=== PATIENT | female | born 1990 | race Hispanic/Latino ===

== ENCOUNTER 2024-03-14 12:42 | Inpatient (IN) | payer MEDICAID, SELFPAY ==
[2024-03-14] MEDS ORDERED: Oseltamivir 75 MG CAP ONE (13:15)
[2024-03-14 13:31] LABS: Hematocrit 35.3 % (36.0-47.0); Hemoglobin 11.3 g/dL (12.0-16.0); Mean Corpuscular Hemoglobin 26.8 pg (27.0-31.0); Mean Corpuscular Volume 83.8 fL (78.0-98.0); Mean Platelet Volume 9.4 fL (7.4-10.4); Platelet Count 349 10x3/uL (130-400); RBC Distribution Width 13.2 % (11.5-14.5); Red Blood Cell (RBC) Count 4.21 mill/uL (4.20-5.40)
[2024-03-14 13:40] LABS: ALT (SGPT) 84 U/L (8-55); AST (SGOT) 97 U/L (5-34); Albumin 2.6 g/dL (3.5-5.0); Alkaline Phosphatase 148 U/L (40-110); Anion Gap 14 mmol/L (10-20); BUN (Urea Nitrogen) 6 mg/dL (7.0-18.7); Bilirubin, Total 1.1 mg/dL (0.2-1.2); Calc. Creatinine Clearance 0 mL/min (70-130); Calcium 7.5 mg/dL (7.8-10.44); Carbon Dioxide 18 mmol/L (22-29); Chloride 111 mmol/L (98-107); Estimated GFR 111; Globulin 3.4 g/dL (2.4-3.5); Glucose 135 mg/dL (70-105); Potassium 3.2 mmol/L (3.5-5.1); Sodium 140 mmol/L (136-145)
[2024-03-14 13:43] LABS: Troponin I Less than 0.010 ng/mL (< 0.028)
[2024-03-14] MEDS ORDERED: Metoclopramide HCl 10 MG (2 mL) VIAL ONE (13:50)
[2024-03-14] MEDS ORDERED: Ketorolac Tromethamine 30 MG (1 mL) VIAL ONE (13:56)
[2024-03-14] MEDS ORDERED: Sodium Chloride 0.9% 1,000 ML IV SCH (14:00)
[2024-03-14] MEDS ORDERED: cefTRIAXone\\ROCEPHIN 2 GM in Sodium Chloride 0.9% 100 ML IVPB SCH (14:00)
[2024-03-14 14:07] LABS: Band 45 % (5-11); Burr Cells MODERATE= 6-15 cells HPF (0-1); Lymphocytes 12 % (21-51); Neutrophil 43 % (42-75); Ovalocytes SLIGHT = 2-5 cells HPF (0-1); Platelet Adequacy Comment Platelets Normal; Reflex for Review?? YES
[2024-03-14] MEDS ORDERED: Piperacillin/Tazobactam 3.375 GM in Sodium Chloride 0.9% 100 ML IVPB SCH ×2 (14:45→19:00)
[2024-03-14] MEDS ORDERED: Hydrocortisone Sod Succ/PF 100 mg/2 ml Vial ONE (14:59)
[2024-03-14] MEDS ORDERED: Electrolyte Replacement Protocol 1 EACH FS SCH (15:37)
[2024-03-14 16:06] LABS: Lactic Acid 2.16 mmol/L (0.5-2.2)
[2024-03-14 16:37] LABS: ALT (SGPT) 106 U/L (8-55); AST (SGOT) 159 U/L (5-34); Albumin 2.2 g/dL (3.5-5.0); Alkaline Phosphatase 177 U/L (40-110); Anion Gap 10 mmol/L (10-20); BUN (Urea Nitrogen) 5 mg/dL (7.0-18.7); Bilirubin, Total 1.3 mg/dL (0.2-1.2); Calc. Creatinine Clearance 0 mL/min (70-130); Calcium 6.8 mg/dL (7.8-10.44); Carbon Dioxide 18 mmol/L (22-29); Chloride 112 mmol/L (98-107); Estimated GFR 117; Globulin 2.8 g/dL (2.4-3.5); Glucose 126 mg/dL (70-105); Potassium 2.4 mmol/L (3.5-5.1); Sodium 138 mmol/L (136-145)
[2024-03-14 16:40] VITALS: BMI 22.6
[2024-03-14 16:56] LABS: Bacteria/HPF None Seen HPF (None Seen); Bilirubin Negative (Negative); Blood, Urine 3+ (Negative); CAUTI Indications for Culture Fever or rigors; Clarity Clear (Clear); Glucose, Urine (Dipstick) Normal (Negative); Ketone, Urine Negative (Negative); Leukocyte 250 Leu/uL (Negative); Nitrite Negative (Negative); Protein, Urine (Dipstick) 10 mg/dL (Neg-Trace); Specific Gravity, Urine 1.022 (1.002-1.036); Squamous Epithelial 0-3 HPF (0-3); Urobilinogen Normal mg/dL (Less than 2); WBC/HPF 21-50 HPF (0-3); pH, Urine 5.5 (5.0-9.0)
[2024-03-14 16:57] LABS: Urine Culture Reflex Yes Yes
[2024-03-14] MEDS: Piperacillin/Tazobactam 3.375 GM in Sodium Chloride 0.9% 100 ML IVPB SCH ×2 (16:58→17:13)
[2024-03-14] MEDS: Potassium Chloride 10 MEQ in Premix 1 BAG IVPB SCH (16:58)
[2024-03-14] MEDS: Lactated Ringer's 1,000 ML IV SCH ×2 (16:59)
[2024-03-14] MEDS: Hydrocortisone Sod Succ/PF 100 mg/2 ml Vial IVP SCH ×2 (17:12→20:24)
[2024-03-14] MEDS ORDERED: NOREPINEPHRINE 8 MG/250 ML-D5W 250 ML IVPB SCH (17:15)
[2024-03-14] MEDS ORDERED: Ondansetron PF 4 MG/2 ML Vial IVP PRN (17:53)
[2024-03-14] MEDS: Potassium Chloride 20 MEQ in Premix 1 BAG IVPB SCH (17:57)
[2024-03-14] MEDS: Potassium Chloride 40 MEQ in Premix 1 BAG IVPB SCH (17:57)
[2024-03-14] MEDS: Ketorolac Tromethamine 30 MG (1 mL) VIAL IVP PRN (18:05)
[2024-03-14] MEDS ORDERED: Dextrose 50% Abboject 50 ML SYRINGE SLOW IVP PRN (20:06)
[2024-03-14] MEDS ORDERED: Dextrose 5% in Water 1,000 ML IV PRN (20:06)
[2024-03-14] MEDS ORDERED: Glucagon 1 MG/ML KIT IM PRN (20:06)
[2024-03-14] MEDS: Enoxaparin 30 MG (0.3 mL) SYRINGE SC SCH (20:24)
[2024-03-14] MEDS: Famotidine/PF 20 mg/2ml Vial SLOW IVP SCH (20:24)
[2024-03-14] MEDS: Insulin Lispro 100 UNIT/ML 10 ML VIAL SC PRN (20:26)
[2024-03-14 20:27] LABS: ALT (SGPT) 147 U/L (8-55); AST (SGOT) 206 U/L (5-34); Albumin 2.3 g/dL (3.5-5.0); Alkaline Phosphatase 185 U/L (40-110); Anion Gap 13 mmol/L (10-20); BUN (Urea Nitrogen) 5 mg/dL (7.0-18.7); Bilirubin, Total 1.4 mg/dL (0.2-1.2); Calc. Creatinine Clearance 92 mL/min (70-130); Calcium 7.7 mg/dL (7.8-10.44); Carbon Dioxide 17 mmol/L (22-29); Chloride 117 mmol/L (98-107); Estimated GFR 117; Glucose 273 mg/dL (70-105); Potassium 3.5 mmol/L (3.5-5.1); Protein, Total 5.3 g/dL (6.0-8.3); Sodium 143 mmol/L (136-145)
[2024-03-15] MEDS: Lactated Ringer's 1,000 ML IV SCH ×2 (00:07→17:33)
[2024-03-15 04:49] LABS: Hematocrit 29.3 % (36.0-47.0); Hemoglobin 9.6 g/dL (12.0-16.0); Mean Corpuscular HGB CONC 32.8 g/dL (32.0-36.0); Mean Corpuscular Hemoglobin 26.7 pg (27.0-31.0); Mean Corpuscular Volume 81.6 fL (78.0-98.0); Platelet Count 333 10x3/uL (130-400); RBC Distribution Width 13.5 % (11.5-14.5); Red Blood Cell (RBC) Count 3.59 mill/uL (4.20-5.40)
[2024-03-15 04:57] LABS: ALT (SGPT) 134 U/L (8-55); AST (SGOT) 113 U/L (5-34); Albumin 2.1 g/dL (3.5-5.0); Alkaline Phosphatase 174 U/L (40-110); Anion Gap 10 mmol/L (10-20); BUN (Urea Nitrogen) 6 mg/dL (7.0-18.7); Bilirubin, Total 0.5 mg/dL (0.2-1.2); Calc. Creatinine Clearance 106 mL/min (70-130); Calcium 7.8 mg/dL (7.8-10.44); Carbon Dioxide 21 mmol/L (22-29); Chloride 118 mmol/L (98-107); Estimated GFR 121; Globulin 3.1 g/dL (2.4-3.5); Glucose 166 mg/dL (70-105); Magnesium 1.8 mg/dL (1.6-2.6); Potassium 3.9 mmol/L (3.5-5.1); Protein, Total 5.2 g/dL (6.0-8.3); Sodium 145 mmol/L (136-145)
[2024-03-15 05:15] LABS: HBsAg Index 0.28 S/CO (0-0.99); Hep A IgM AB NONREACTIVE (NonReactive); Hep A IgM S/CO 0.26 S/CO (0-0.79); Hep B Core IgM Index 0.12 S/CO (0-0.79); Hep B Surf Ag NONREACTIVE S/CO (NonReactive); Hep C IgG Ab NONREACTIVE S/CO (NonReactive); Hep C Index 0.18 S/CO (0-0.79); Hepatitis B Core IgM Abs NONREACTIVE S/CO (NonReactive)
[2024-03-15 05:25] LABS: Band 32 % (5-11); Burr Cells SLIGHT = 2-5 cells HPF (0-1); Dohle Bodies SLIGHT; Lymphocytes 4 % (21-51); Metamyelocyte 3 % (0-0); Microcytosis SLIGHT = 6-15 cells HPF (0-5); Monocytes 3 % (0-10); Neutrophil 58 % (42-75); Platelet Adequacy Comment Platelets Normal; Poikilocytosis SLIGHT = 6-15 cells HPF (0-5); Polychromasia SLIGHT = 2-3 cells HPF (0-2); Target Cells SLIGHT = 2-5 cells HPF (0-1); Toxic Granulation SLIGHT
[2024-03-15] MEDS: Albumin 25% 25 GM (100 mL) BOT IVPB SCH (07:19)
[2024-03-15] MEDS: FLU (Fluarix Triv) TS24-25(6MOS UP)/PF 45 MCG/0.5 ML Syringe IM ONE (07:20)
[2024-03-15] MEDS: Magnesium 2 GM/50 ML(in water) 2 GM in Premix 1 BAG IVPB SCH (07:20)
[2024-03-15] MEDS ORDERED: Senokot S 8.6-50 MG TAB PO PRN (07:31)
[2024-03-15] MEDS: Lactated Ringer's 500 ML IV SCH (07:52)
[2024-03-15 08:09] LABS: Hemoglobin A1c 5.9 % (4.0-6.0)
[2024-03-15] MEDS ORDERED: Albumin 25% 25 GM (100 mL) BOT IVPB SCH (09:30)
[2024-03-15] MEDS ORDERED: Iopamidol-370 76% 500 ML MDV (1 ML CHARGE) ONE (13:36)
[2024-03-15] MEDS: Enoxaparin 40 MG (0.4 mL) SYRINGE SC SCH (20:34)
[2024-03-16 03:09] LABS: #Basophils Less than 0.03 10x3/uL (0.0-0.2); #Eosinophils Less than 0.03 10x3/uL (0.0-0.7); %Basophils 0.1 % (0.0-1.0); %Lymphocytes 6.1 % (21.0-51.0); %Monocytes 3.1 % (0.0-10.0); %Neutrophils 88.3 % (42.0-75.0); Hematocrit 27.2 % (36.0-47.0); Hemoglobin 9.1 g/dL (12.0-16.0); Mean Corpuscular HGB CONC 33.5 g/dL (32.0-36.0); Mean Corpuscular Hemoglobin 26.9 pg (27.0-31.0); Mean Corpuscular Volume 80.5 fL (78.0-98.0); Mean Platelet Volume 10.4 fL (7.4-10.4); Platelet Count 395 10x3/uL (130-400); RBC Distribution Width 13.7 % (11.5-14.5); Red Blood Cell (RBC) Count 3.38 mill/uL (4.20-5.40)
[2024-03-16] MEDS: Ketorolac Tromethamine 30 MG (1 mL) VIAL IVP SCH (05:55)
[2024-03-16 06:28] LABS: Anion Gap 13 mmol/L (10-20); BUN (Urea Nitrogen) 8 mg/dL (7.0-18.7); Calc. Creatinine Clearance 110 mL/min (70-130); Calcium 8.1 mg/dL (7.8-10.44); Carbon Dioxide 21 mmol/L (22-29); Chloride 112 mmol/L (98-107); Estimated GFR 122; Glucose 159 mg/dL (70-105); Potassium 3.2 mmol/L (3.5-5.1); Sodium 143 mmol/L (136-145)
[2024-03-16 07:13] LABS: Bilirubin, Total 0.3 mg/dL (0.2-1.2)
[2024-03-16 07:14] LABS: ALT (SGPT) 114 U/L (8-55); AST (SGOT) 68 U/L (5-34); Albumin 2.3 g/dL (3.5-5.0); Alkaline Phosphatase 158 U/L (40-110); Bilirubin, Direct 0.2 mg/dL (0.1-0.3); Protein, Total 5.1 g/dL (6.0-8.3)
[2024-03-16] MEDS: Potassium Chloride 20 MEQ TAB PO SCH (07:40)
[2024-03-16] MEDS: Hydrocortisone Sod Succ/PF 100 mg/2 ml Vial IVP SCH (08:32)
[2024-03-16] MEDS: Famotidine 20 MG TAB PO SCH (20:36)
[2024-03-16] MEDS: Acetaminophen 325 MG TAB PO PRN (21:31)
[2024-03-17 05:49] LABS: #Basophils Less than 0.03 10x3/uL (0.0-0.2); #Eosinophils Less than 0.03 10x3/uL (0.0-0.7); %Basophils 0.2 % (0.0-1.0); %Lymphocytes 11.4 % (21.0-51.0); %Neutrophils 80.9 % (42.0-75.0); Hematocrit 32.1 % (36.0-47.0); Hemoglobin 10.4 g/dL (12.0-16.0); Mean Corpuscular HGB CONC 32.4 g/dL (32.0-36.0); Mean Corpuscular Hemoglobin 26.4 pg (27.0-31.0); Mean Corpuscular Volume 81.5 fL (78.0-98.0); Mean Platelet Volume 10.1 fL (7.4-10.4); Platelet Count 574 10x3/uL (130-400); RBC Distribution Width 13.3 % (11.5-14.5); Red Blood Cell (RBC) Count 3.94 mill/uL (4.20-5.40)
[2024-03-17 06:04] LABS: Anion Gap 13 mmol/L (10-20); BUN (Urea Nitrogen) 8 mg/dL (7.0-18.7); Calc. Creatinine Clearance 107 mL/min (70-130); Calcium 8.1 mg/dL (7.8-10.44); Carbon Dioxide 22 mmol/L (22-29); Chloride 109 mmol/L (98-107); Estimated GFR 120; Glucose 142 mg/dL (70-105); Potassium 3.2 mmol/L (3.5-5.1); Sodium 141 mmol/L (136-145)
[2024-03-17 06:16] LABS: ALT (SGPT) 86 U/L (8-55); AST (SGOT) 28 U/L (5-34); Albumin 2.4 g/dL (3.5-5.0); Alkaline Phosphatase 159 U/L (40-110); Bilirubin, Direct 0.2 mg/dL (0.1-0.3); Bilirubin, Total 0.3 mg/dL (0.2-1.2); Protein, Total 5.4 g/dL (6.0-8.3)
[2024-03-17] MEDS: Potassium Bicarbonate/Cit Ac 20 MEQ TAB PO SCH (09:23)
[2024-03-17] MEDS: LevoFLOXacin 750 MG TAB PO SCH (21:03)
[2024-03-18 01:11] VITALS: TEMP 98.1
[2024-03-18 06:12] LABS: Anion Gap 14 mmol/L (10-20); BUN (Urea Nitrogen) 8 mg/dL (7.0-18.7); Calc. Creatinine Clearance 104 mL/min (70-130); Calcium 8.5 mg/dL (7.8-10.44); Carbon Dioxide 25 mmol/L (22-29); Chloride 105 mmol/L (98-107); Estimated GFR 119; Glucose 101 mg/dL (70-105); Potassium 3.5 mmol/L (3.5-5.1); Sodium 140 mmol/L (136-145)
[2024-03-18 08:05] LABS: ALT (SGPT) 97 U/L (8-55); AST (SGOT) 44 U/L (5-34); Albumin 2.7 g/dL (3.5-5.0); Alkaline Phosphatase 127 U/L (40-110); Bilirubin, Direct 0.1 mg/dL (0.1-0.3); Bilirubin, Total 0.3 mg/dL (0.2-1.2); Protein, Total 5.7 g/dL (6.0-8.3)
[2024-03-18] MEDS: Potassium Chloride 20 MEQ TAB PO SCH (08:26)
[2024-03-18 08:28] VITALS: BP 109/69
== END 2024-03-18 10:11 | disposition home or self-care (01) | DRG 871 ==
LOC: ERS 12:42 → ERHOLD 13:25 → CCU 16:20 → T4-A 03-16 16:20
PROVIDERS: ADMIT Hospitalist; ATTEND Family Medicine
PROC: 02H633Z Insertion of Infusion Device into Right Atrium, Percutaneous Approach (ICD-10-PCS; principal; 2024-03-14)
PROC: 3E04329 Introduction of Other Anti-infective into Central Vein, Percutaneous Approach (ICD-10-PCS; 2024-03-14)
DX: A41.50 Gram-negative sepsis, unspecified (principal); R65.21 Severe sepsis with septic shock; N10 Acute pyelonephritis; E87.20 Acidosis, unspecified; E87.6 Hypokalemia; J10.1 Influenza due to other identified influenza virus with other respiratory manifestations; Z90.49 Acquired absence of other specified parts of digestive tract; Z79.899 Other long term (current) drug therapy; Z79.4 Long term (current) use of insulin
CPT/HCPCS: 36415; 36416; 36556; 51702; 70450; 71045; 74177; 80048; 80053; 80074; 80076; 82533; 82728; 83036; 83605; 83735; 84132; 84484; 85025; 85060; 93005; 96365; 96366; 96368; 96375; J1650; J1720; J1815; J1885; J2543; J2765; J3475; J3480; J3490; J7120; P9047; Q9967